=== PATIENT | male | born 1995 | race Caucasian/White ===

== ENCOUNTER 2017-08-02 08:27 | Emergency (ER) | payer MEDICAID, OTHER ==
[~2017-08-02] VITALS: Ht 175.3 cm; Wt 118.0 kg
[2017-08-02 09:30] VITALS: BP 128/72
== END 2017-08-02 11:11 | disposition home or self-care (01) ==
LOC: ER 08:33
DX: G44.89 Other headache syndrome (principal); J45.909 Unspecified asthma, uncomplicated; F12.10 Cannabis abuse, uncomplicated
CPT/HCPCS: 99283

== ENCOUNTER 2019-05-30 21:55 | Emergency (ER) | payer MEDICAID, OTHER ==
[~2019-05-30] VITALS: Ht 172.7 cm; Wt 160.0 kg
[2019-05-30 23:07] VITALS: BP 153/79
[2019-05-30] MEDS: VISCOUS LIDOCAINE 2% 15 ML UDC MM STA (23:53)
== END 2019-05-31 01:02 | disposition home or self-care (01) ==
LOC: ER 21:55
DX: R09.89 Other specified symptoms and signs involving the circulatory and respiratory systems (principal); F17.200 Nicotine dependence, unspecified, uncomplicated; F12.10 Cannabis abuse, uncomplicated; J45.909 Unspecified asthma, uncomplicated
CPT/HCPCS: 99281

== ENCOUNTER 2019-06-01 18:14 | Emergency (ER) | payer MEDICAID ==
[~2019-06-01] VITALS: Ht 172.7 cm; Wt 124.0 kg
[2019-06-01] MEDS ORDERED: TETANUS, DIPHTHERIA, PERTUSSIS VAC/PF 0.5ML (>7YR OLD) IM ONE (23:00)
[2019-06-01] MEDS ORDERED: BACITRACIN ZINC OINT UDPKT TOP ONE ×2 (23:00→23:30)
[2019-06-01] MEDS ORDERED: IBUPROFEN 600MG TABLET PO ONE (23:00)
[2019-06-01] MEDS ORDERED: BACITRACIN 15GM TUBE TOP STA (23:32)
[2019-06-01 23:56] VITALS: BP 124/78
== END 2019-06-01 23:58 | disposition home or self-care (01) ==
LOC: ER 18:14
DX: S61.217A Laceration without foreign body of left little finger without damage to nail, initial encounter (principal); S61.215A Laceration without foreign body of left ring finger without damage to nail, initial encounter; W26.8XXA Contact with other sharp object(s), not elsewhere classified, initial encounter; Y93.89 Activity, other specified; Y92.89 Other specified places as the place of occurrence of the external cause; Z23 Encounter for immunization
CPT/HCPCS: 90471; 90715; 99284

== ENCOUNTER 2019-07-17 15:22 | Emergency (ER) | payer MEDICAID ==
[~2019-07-17] VITALS: Ht 175.3 cm; Wt 118.0 kg
[2019-07-17] MEDS ORDERED: SODIUM CHLORIDE 0.9% 1,000 ML IV ONE (17:07)
[2019-07-17 17:43] LABS: BASOPHILS % 0.6 % (0.0-2.0); EOSINOPHILS % 0.4 % (0.0-5.0); HEMATOCRIT. 43.8 % (42.0-52.0); HEMOGLOBIN. 15.1 g/dL (14.0-18.0); MEAN CORPUSCULAR HEMOGLOBIN 30.1 pg (28.0-32.0); MEAN CORPUSCULAR VOLUME 87.4 fL (80.0-94.0); MEAN PLATELET VOLUME 7.1 fl (7.4-10.4); MONOCYTES % 5.4 % (2.0-8.0); NEUTROPHILS % 76.6 % (40.0-76.0); PLATELET 272 x1000/uL (130-400); RED BLOOD CELL COUNT 5.02 mill/uL (4.7-6.1); RED CELL DISTRIBUTION WIDTH 13.2 % (11.6-14.6)
[2019-07-17 17:47] LABS: CHLORIDE 107 mEq/L (98-107)
[2019-07-17 17:51] LABS: ETHANOL BLOOD < 10 mg/dL
[2019-07-17 18:47] VITALS: BP 116/78
== END 2019-07-17 20:40 | disposition home or self-care (01) ==
LOC: ER 15:22
DX: F12.10 Cannabis abuse, uncomplicated (principal); R07.89 Other chest pain; R42 Dizziness and giddiness; J45.909 Unspecified asthma, uncomplicated; Z91.013 Allergy to seafood
CPT/HCPCS: 36415; 71045; 80048; 80320; 84484; 85025; 93005; 96360; 99284; J7030; G0480

== ENCOUNTER 2020-05-27 07:19 | Emergency (ER) | payer MEDICAID ==
[~2020-05-27] VITALS: Ht 167.6 cm; Wt 118.0 kg
[2020-05-27 07:58] VITALS: BP 132/77
== END 2020-05-27 07:59 | disposition home or self-care (01) ==
LOC: ER 07:19
DX: R07.0 Pain in throat (principal); R03.0 Elevated blood-pressure reading, without diagnosis of hypertension; J45.909 Unspecified asthma, uncomplicated; F12.90 Cannabis use, unspecified, uncomplicated
CPT/HCPCS: 99281

== ENCOUNTER 2020-07-20 10:41 | Emergency (ER) | payer MEDICAID ==
[~2020-07-20] VITALS: Ht 175.3 cm; Wt 129.0 kg
[2020-07-20 10:53] VITALS: BP 153/95
== END 2020-07-20 11:33 | disposition home or self-care (01) ==
LOC: ER 10:41
DX: J02.9 Acute pharyngitis, unspecified (principal); J45.909 Unspecified asthma, uncomplicated
CPT/HCPCS: 99281

== ENCOUNTER 2020-07-28 10:44 | Emergency (ER) | payer MEDICAID ==
[~2020-07-28] VITALS: Ht 172.7 cm; Wt 129.0 kg
[2020-07-28 13:42] VITALS: BP 141/82
== END 2020-07-28 13:43 | disposition home or self-care (01) ==
LOC: ER 10:44
DX: S93.402A Sprain of unspecified ligament of left ankle, initial encounter (principal); J45.909 Unspecified asthma, uncomplicated; F12.10 Cannabis abuse, uncomplicated; Z91.013 Allergy to seafood; W50.2XXA Accidental twist by another person, initial encounter; Y93.89 Activity, other specified; Y92.89 Other specified places as the place of occurrence of the external cause; Y99.8 Other external cause status
CPT/HCPCS: 73610; 73630; 99284

== ENCOUNTER 2020-09-09 06:42 | Emergency (ER) | payer MEDICAID ==
[~2020-09-09] VITALS: Ht 172.7 cm; Wt 127.0 kg
[2020-09-09 06:44] VITALS: BP 141/83
== END 2020-09-09 07:47 | disposition home or self-care (01) ==
LOC: ER 06:42
DX: R09.89 Other specified symptoms and signs involving the circulatory and respiratory systems (principal); J45.909 Unspecified asthma, uncomplicated; F12.10 Cannabis abuse, uncomplicated; Z91.013 Allergy to seafood
CPT/HCPCS: 99281

== ENCOUNTER 2025-04-10 16:32 | Emergency (ER) | payer MEDICAID ==
[~2025-04-10] VITALS: Ht 177.8 cm; Wt 120.0 kg
[2025-04-10 16:42] VITALS: O2SAT 98
[2025-04-10 17:30] LABS: BASOPHILS % 0.4 % (0.0-2.0); EOSINOPHILS % 1.1 % (0.0-5.0); HEMATOCRIT. 45.8 % (42.0-52.0); HEMOGLOBIN. 15.8 g/dL (14.0-18.0); LYMPHOCYTES % 21.4 % (20.0-50.0); MEAN CORPUSCULAR HEMOGLOBIN 29.7 pg (28.0-32.0); MEAN CORPUSCULAR HGB CONC 34.5 g/dL (31.0-37.0); MEAN CORPUSCULAR VOLUME 86.3 fL (80.0-94.0); MEAN PLATELET VOLUME 7.1 fl (7.4-10.4); MONOCYTES % 7.4 % (2.0-8.0); NEUTROPHILS % 69.7 % (40.0-76.0); PLATELET 348 x1000/uL (130-400); RED BLOOD CELL COUNT 5.31 mill/uL (4.7-6.1); RED CELL DISTRIBUTION WIDTH 14.3 % (11.6-14.6); WHITE BLOOD COUNT 10.8 x1000/uL (4.5-11.0)
[2025-04-10 17:37] LABS: CHLORIDE 105 mEq/L (98-107); POTASSIUM 3.9 mEq/L (3.5-5.1); SODIUM 141 mEq/L (136-145)
[2025-04-10 17:38] LABS: CALCIUM 9.2 mg/dL (8.7-10.4); CARBON DIOXIDE 28 mEq/L (21-32)
[2025-04-10] MEDS: IBUPROFEN 600MG TABLET PO STA (17:41)
[2025-04-10] MEDS: KETOROLAC 30MG/ML VIAL IM STA (17:42)
[2025-04-10 17:43] LABS: GLUCOSE 124 mg/dL (70-105); UREA NITROGEN BLOOD 8 mg/dL (9-23)
[2025-04-10 17:45] LABS: ALANINE AMINOTRANSFERASE 64 IU/L (10-49); ALBUMIN 4.6 g/dL (3.2-4.8); ASPARTATE AMINOTRANSFERASE 20 IU/L (<34)
[2025-04-10 17:46] LABS: BILIRUBIN DIRECT 0.1 mg/dL (<=3.0); BILIRUBIN TOTAL 0.4 mg/dL (0.1-1.0); PROTEIN TOTAL 7.3 g/dL (6.0-8.3)
[2025-04-10] MEDS ORDERED: TOPUD PO (19:40)
[2025-04-10] MEDS ORDERED: IBUP-2029 MT (19:40)
[2025-04-10 19:47] VITALS: BP 136/76; PULSE 88; RESP 16; TEMP 36.8; O2SAT 100
== END 2025-04-10 19:53 | disposition home or self-care (01) ==
LOC: ER 16:32
DX: N20.0 Calculus of kidney (principal); F12.10 Cannabis abuse, uncomplicated; J45.909 Unspecified asthma, uncomplicated; Z91.013 Allergy to seafood
CPT/HCPCS: 80076; 80048; 83690; 85025; 36415; 74176; 96372; 99285; J1885; Z7610